=== PATIENT | female | born 1965 | race Caucasian/White ===

== ENCOUNTER 2019-10-28 08:24 | Outpatient (CLI) | payer BC, SELFPAY ==
--- NOTE | ~2019-10-28 | DEXA_ITS ---
BMD(1) Young-Adult(2) Age-Matched(3) Region (g/cm2) T-score Z-score WHO Classification L1 1.067 -0.6 -0.9 Normal L2 1.226 0.1 -0.1 Normal L3 1.224 0.1 -0.2 Normal L4 1.297 0.6 0.3 Normal L1-L4 1.210 0.1 -0.1 Normal Trend: L1-L4 Change vs Change vs Measured Age BMD(1) Baseline Previous Date [age]) (g/cm2) (%) (%) 10/28/2019 54.0 1.210 baseline - 1 - Statistically 68% of repeat scans fall within 1SD (+- 0.010 g/cm2 for AP Spine L1-L4) 2 - [place] (Combined [place]ANES (ages 20-30) / [place] (ages 20-40)) AP Spine Reference Population (v112) 3 - Matched for Age, Weight (females 25-100 kg), Ethnic 11 - World Health Organization - Definition of Osteoporosis and Osteopenia for Women: Normal = T-score at or above -1.0 SD; Osteopenia = T-score between -1.0 and -2.5 SD; Osteoporosis = T-score at or below -2.5 SD; (WHO definitions only apply when a young healthy Women reference database is used to determine T-scores.) Printed: 10/28/2019 9:02:31 AM (13.60)76:3.00:50.00:12.0 0.00:11.94 0.60x1.05 28.5:%Fat=46.8% 0.00:0.00 0.00:0.00 Measured thickness not within mode range;Verify bone is centered and there is sufficient tissue next to bone. Filename: [email or web address] Scan Mode: Standard;Probe Scientificcan 37.0 Scene[employer] [id number] BMD(1) Young-Adult(2,7) Age-Matched(3) Region (g/cm2) T-score Z-score WHO Classification Neck Left 0.901 -1.0 -0.7 Normal Right 0.925 -0.8 -0.5 Normal Mean 0.913 -0.9 -0.6 Normal Difference 0.025 0.2 0.2 - Total Left 0.967 -0.3 -0.4 Normal Right 0.911 -0.8 -0.9 Normal Mean 0.939 -0.5 -0.6 Normal Difference 0.055 0.4 0.4 - Hip [place] Length Comparison (mm) (Right = 108.5 mm) (Mean = 111.5 mm) (Left = 112.1 mm) Trend: Total Mean Change vs Change vs Measured Age BMD(1) Baseline Previous Date [age]) (g/cm2) (%) (%) 10/28/2019 54.0 0.939 baseline - 1 - Statistically 68% of repeat scans fall within 1SD (+- 0.010 g/cm2 for DualFemur Total) 2 - [place] (Combined [place]ANES (ages 20-30) / [place] (ages 20-40)) Femur Reference Population (v112) 3 - Matched for Age, Weight (females 25-100 kg), Ethnic 7 - DualFemur Total T-score difference is 0.4. Asymmetry is None. 11 - World Health Organization - Definition of Osteoporosis and Osteopenia for Women: Normal = T-score at or above -1.0 SD; Osteopenia = T-score between -1.0 and -2.5 SD; Osteoporosis = T-score at or below -2.5 SD; (WHO definitions only apply when a young healthy Women reference database is used to determine T-scores.) Printed: 10/28/2019 9:02:32 AM (13.60); Filename: [email or web address]; Right Femur; 22.3:%Fat=32.0%; Neck Angle (deg)= 69; Scan Mode: Standard 37.0 uGy; Left Femur; 21.7:%Fat=38.0%; Neck Angle (deg)= 67; Scan Mode: Standard 37.0 uGy [employer] [id number] Dear Paul Pollock, Your patient Justa Ramon completed a BMD test on 10/28/2019 using the [employer] DXA System (analysis version: 13.60) manufactured by [employer]. The following summarizes the results of our evaluation. PATIENT BIOGRAPHICAL: Name: Justa Ramon Date: 1965 Height: 69.0 in. Gender: Female
== END 2019-10-28 08:25 | disposition home or self-care (01) ==
PROVIDERS: PCP Family Medicine; Visit Provider Family Medicine
DX: Z78.0 Asymptomatic menopausal state (principal)
CPT/HCPCS: 77080